=== PATIENT | female | born 1965 | race African-American/Black ===

== ENCOUNTER 2021-05-22 05:24 | Emergency (ER) | payer BC ==
[~2021-05-22] VITALS: Ht 177.8 cm; Wt 118.0 kg
--- NOTE | 2021-05-22 06:16 | EKG ---
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
[2021-05-22 06:24] LABS: BASO % 1 % (0-3); EOS # 0.1 x10^3/uL (0.0-0.7); EOS % 2 % (0-3); HEMATOCRIT 35.1 % (36.0-47.0); HEMOGLOBIN 11.5 g/dL (12.0-15.5); LYMPH # 2.1 x10^3/uL (1.0-4.8); LYMPH % 41 % (24-48); MEAN CORPUSCULAR HEMOGLOBIN 25 pg (25-35); MEAN CORPUSCULAR HGB CONC 33 g/dL (31-37); MEAN CORPUSCULAR VOLUME 75 fL (79-100); MONO # 0.4 x10^3/uL (0.0-1.1); MONO % 7 % (0-9); NEUT # 2.6 x10^3/uL (1.8-7.7); NEUT % 49 % (31-73); PLATELET COUNT 183 x10^3/uL (140-400); RED BLOOD COUNT 4.67 x10^6/uL (3.50-5.40); RED CELL DISTRIBUTION WIDTH 16.4 % (11.5-14.5); WHITE BLOOD COUNT 5.2 x10^3/uL (4.0-11.0)
[2021-05-22 06:36] LABS: CALCIUM 8.7 mg/dL (8.5-10.1); CREATININE 0.9 mg/dL (0.6-1.0); GFR 64.8; POTASSIUM 3.5 mmol/L (3.5-5.1)
[2021-05-22 06:42] LABS: ALBUMIN 3.7 g/dL (3.4-5.0); ALBUMIN/GLOBULIN RATIO 1.2 (1.0-1.7); TOTAL BILIRUBIN 0.4 mg/dL (0.2-1.0); TOTAL PROTEIN 6.9 g/dL (6.4-8.2)
[2021-05-22 06:57] LABS: BILIRUBIN,URINE NEGATIVE (NEG); CLARITY,URINE CLEAR; COLOR,URINE YELLOW; NITRITE,URINE NEGATIVE (NEG); PH,URINE 5.5 (<5.0-8.0); PROTEIN,URINE NEGATIVE (NEG-TRACE); UROBILINOGEN,URINE 0.2 mg/dL (0.2 mg/dL)
[2021-05-22 07:14] LABS: BACTERIA,URINE 0 /HPF (0-FEW); RBC,URINE 0 /HPF (0-2); WBC,URINE OCC /HPF (0-4)
--- NOTE | 2021-05-22 07:35 | RAD ---
EXAM: CT HEAD WITHOUT CONTRAST. HISTORY: Dizziness. TECHNIQUE: Computed tomography of the head was performed without intravenous contrast. One or more of the following individualized dose reduction techniques were utilized for this examination: 1. Automated exposure control. 2. Adjustment of the mA and/or kV according to patient size. 3. Use of iterative reconstruction technique. COMPARISON: None. FINDINGS: There is no intracranial hemorrhage. Whatley-white differentiation is preserved. The ventricle s are normal in size and position. The visualized paranasal sinuses appear clear. The orbits are unremarkable. The temporal bones are un remarkable. The calvarium reveals no suspicious lesions. IMPRESSION: 1. No acute intracranial findings. Electronically signed by: Tc Llamas MD (05/22/2021 7:33 AM) [id number]
[2021-05-22] MEDS ORDERED: CONTRAST GIVEN. MC PRN (09:00)
[2021-05-22] MEDS ORDERED: IOHEXOL 300 MG/ML 100ML VIAL. IV ONE (09:00)
--- NOTE | 2021-05-22 09:36 | RAD ---
PQRS Compliance Statement: One or more of the following individualized dose reduction techniques were utilized for this examinat ion: 1. Automated exposure control 2. Adjustment of the mA and/or kV according to patient size 3. Use of iterative reconstruction technique CTA HEAD AND NECK W/WO CONTRAST 05/22/2021 8:53 AM INDICATION: Dizziness, falling to the left side when walking COMPARISON: CT head 05/22/2021 TECHNIQUE: Multiple axial CT images of the head and neck were obtained after the intravenous administ ration of nonionic contrast. Coronal and sagittal reformats are provided. Maximum intensity projectio n images are provided. Stenosis calculations for CT, MR, and conventional angiography are based upon measurements of the dis jessica ICA diameter in accordance with the NASCET methodology. Stenosis calculations for carotid ultraso und studies are derived from validated velocity criteria which are known to correlate with the NASCET methodology. FINDINGS: Ventricles, sulci and basal cisterns are normal in appearance. Whatley-white matter differentiation is p reserved. There is no mass, mass effect or midline shift. Posterior fossa is normal in appearance. Se lla and suprasellar cistern appear normal. Orbits are normal in appearance . Scalp and calvaria appea r intact. Paranasal sinuses are well aerated. Mastoid air cells are well aerated. Visualized portions of lungs are clear. Left thyroid lobe is surgically absent. Neck soft tissues are normal in appearance. No pathologically enlarged cervical lymphadenopathy. Pharynx and larynx appear intact. Vascular findings: Venous contamination evaluation. There is a normal three-vessel aortic arch. Origins of the brachiocephalic vessels are widely patent. Right common carotid artery is normal in course and caliber. No significant atherosclerotic changes a re identified at the right carotid bifurcation. No significant stenosis of the right cervical interna l carotid artery. External carotid artery is widely patent. Left common carotid artery is normal in course and caliber. No significant atherosclerotic changes ar e identified at the left carotid bifurcation. No significant stenosis of the left cervical internal c arotid artery. External carotid artery is widely patent. Vertebral arteries are normal in course and caliber. Intracranial segments of internal carotid arteries are normal in course and caliber. There is mild ca lcified atheromatous plaque involving the cavernous segments without significant stenosis. Origins of the ophthalmic segments of the internal carotid artery appears widely patent. Middle cerebral arteri es are normal in course and caliber with patent sylvian branches. Anterior cerebral arteries are nor mal in course and caliber. Anterior communicating artery is visualized. Basilar artery is normal in course and caliber. Superior cerebellar arteries are widely patent. Poste rior cerebral arteries are normal in course and caliber. There is no aneurysm, vascular malformation or high-grade stenosis/large vessel occlusion involving c [place] of [place]. Superior sagittal sinus is patent. IMPRESSION: 1. There is no evidence for acute intracranial hemorrhage. 2. There is no evidence for hemodynamically significant carotid stenosis. 3. There is no aneurysm, vascular malformation or high-grade stenosis/large vessel occlusion involvin g the [place] of [place]. Electronically signed by: Naomy Rodriguez MD (05/22/2021 9:34 AM) [id number]
--- NOTE | 2021-05-22 10:16 | PHYS DOC ---
Past Medical History Past Surgical History: Cholecystectomy, Tonsillectomy, Tubal ligation Smoking Status: Never Smoker Alcohol Use: Occasionally General Adult EDM: Chief Complaint: DIZZY/LIGHT HEADED HPI: HPI: Patient is a 55 year old female who presented to ER for evaluation of dizziness since 6 PM yesterday. Patient says for the last few days she has been experiencing nasal congestion, facial pain. 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 Patient said whenever she tried to walk she she felt like she was leaning to the left side. Patient denies any headache, no chest pain, no abdominal pain, no nausea vomiting.. Patient continued to have the symptom throughout the night so this morning she came in. The dizziness was worsened with head movement, upright position. Patient denies any weakness or numbness anywhere. Patient denies any trouble speaking, no slurred speech, no memory problem. Patient says she had this problem in the past and is related to her sinus problem. Review of Systems: Review of Systems: Constitutional: Denies fever or chills. [] Eyes: Denies change in visual acuity. [] HENT: Positive for nasal congestion, no sore throat Respiratory: Denies cough or shortness of breath. [] Cardiovascular: Denies chest pain or edema. [] GI: Denies abdominal pain, nausea, vomiting, bloody stools or diarrhea. [] : Denies dysuria. [] Musculoskeletal: Denies back pain or joint pain. [] Integument: Denies rash. [] Neurologic: Denies headache, focal weakness or sensory changes. Positive for dizziness. Endocrine: Denies polyuria or polydipsia. [] Lymphatic: Denies swollen glands. [] Psychiatric: Denies depression or anxiety. [] Heart Score: C/O Chest Pain: N/A Risk Factors: Risk Factors: DM, Current or recent (<one month) smoker, HTN, HLP, family history of CAD, obesity. Risk Scores: Score 0 - 3: 2.5% MACE over next 6 weeks - Discharge Home Score 4 - 6: 20.3% MACE over next 6 weeks - Admit for Clinical Observation Score 7 - 10: 72.7% MACE over next 6 weeks - Early Invasive Strategies Current Medications: Current Medications Medications (Trade) Dose Ordered Sig/Wesley Start Time Stop Time Status Last Admin Dose Admin Info (CONTRAST GIVEN -- Rx MONITORING) 1 each PRN DAILY PRN 05/22/21 09:00 05/24/21 08:59 Iohexol (Omnipaque 300 Mg/ml) 75 ml 1X ONCE 05/22/21 09:00 05/22/21 09:01 DC 05/22/21 09:19 75 ML Allergies: Allergies: Allergies Coded Allergies Type Severity Reaction Last Updated Verified No Known Drug Allergies 05/22/21 No Physical Exam: PE: Constitutional: Well developed, well nourished, no acute distress, non-toxic appearance. [] HENT: Normocephalic, atraumatic, bilateral external ears normal, oropharynx moist, no oral exudates, nose normal. [] Eyes: PERRLA, EOMI, conjunctiva normal, no discharge. [] Neck: Normal range of motion, no tenderness, supple, no stridor. [] Cardiovascular:Heart rate regular rhythm, no murmur [] Lungs & Thorax: Bilateral breath sounds clear to auscultation [] Abdomen: Bowel sounds normal, soft, no tenderness, no masses, no pulsatile masses. [] Skin: Warm, dry, no erythema, no rash. [] Back: No tenderness, no CVA tenderness. [] Extremities: No tenderness, no cyanosis, no clubbing, ROM intact, no edema. [] Neurologic: Alert and oriented X 3, normal motor function, normal sensory fun ction, no focal deficits noted. [] Psychologic: Affect normal, judgement normal, mood normal. [] Current Patient Data: Labs: Laboratory Tests Test 05/22/21 06:12 05/22/21 06:50 White Blood Count 5.2 x10^3/uL (4.0-11.0) Red Blood Count 4.67 x10^6/uL (3.50-5.40) Hemoglobin 11.5 g/dL (12.0-15.5) L Hematocrit 35.1 % (36.0-47.0) L Mean Corpuscular Volume 75 fL (79-100) L Mean Corpuscular Hemoglobin 25 pg (25-35) Mean Corpuscular Hemoglobin Concent 33 g/dL (31-37) Red Cell Distribution Width 16.4 % (11.5-14.5) H Platelet Count 183 x10^3/uL (140-400) Neutrophils (%) (Auto) 49 % (31-73) Lymphocytes (%) (Auto) 41 % (24-48) Monocytes (%) (Auto) 7 % (0-9) Eosinophils (%) (Auto) 2 % (0-3) Basophils (%) (Auto) 1 % (0-3) Neutrophils # (Auto) 2.6 x10^3/uL (1.8-7.7) Lymphocytes # (Auto) 2.1 x10^3/uL (1.0-4.8) Monocytes # (Auto) 0.4 x10^3/uL (0.0-1.1) Eosinophils # (Auto) 0.1 x10^3/uL (0.0-0.7) Basophils # (Auto) 0.0 x10^3/uL (0.0-0.2) Sodium Level 138 mmol/L (136-145) Potassium Level 3.5 mmol/L (3.5-5.1) Chloride Level 102 mmol/L (98-107) Carbon Dioxide Level 29 mmol/L (21-32) Anion Gap 7 (6-14) Blood Urea Nitrogen 19 mg/dL (7-20) Creatinine 0.9 mg/dL (0.6-1.0) Estimated GFR (Cockcroft-Gault) 64.8 BUN/Creatinine Ratio 21 (6-20) H Glucose Level 106 mg/dL (70-99) H Calcium Level 8.7 mg/dL (8.5-10.1) Magnesium Level 1.8 mg/dL (1.8-2.4) Total Bilirubin 0.4 mg/dL (0.2-1.0) Aspartate Amino Transferase (AST) 15 U/L (15-37) Alanine Aminotransferase (ALT) 32 U/L (14-59) Alkaline Phosphatase 73 U/L (46-116) Troponin I High Sensitivity < 4 ng/L (4-50) L Total Protein 6.9 g/dL (6.4-8.2) Albumin 3.7 g/dL (3.4-5.0) Albumin/Globulin Ratio 1.2 (1.0-1.7) Urine Collection Type Unknown Urine Color Yellow Urine Clarity Clear Urine pH 5.5 (<5.0-8.0) Urine Specific Sterling 1.015 (1.000-1.030) Urine Protein Negative mg/dL (NEG-TRACE) Urine Glucose (UA) Negative mg/dL (NEG) Urine Ketones (Stick) Negative mg/dL (NEG) Urine Blood Small (NEG) Urine Nitrite Negative (NEG) Urine Bilirubin Negative (NEG) Urine Urobilinogen Dipstick 0.2 mg/dL (0.2 mg/dL) Urine Leukocyte Esterase Negative (NEG) Urine RBC 0 /HPF (0-2) Urine WBC Occ /HPF (0-4) Urine Squamous Epithelial Cells Many /LPF Urine Renal Epithelial Cells Occ /LPF Urine Bacteria 0 /HPF (0-FEW) Urine Mucus Marked /LPF Laboratory Tests 05/22/21 06:12 Laboratory Tests 05/22/21 06:12 Vital Signs: Vital Signs Date Time Temp Pulse Resp B/P (MAP) Pulse Ox O2 Delivery O2 Flow Rate FiO2 05/22/21 09:30 67 16 151/87 (108) 99 Room Air 05/22/21 05:46 98.1 98.1 EKG: EKG: EKG was done at 602, heart rate of 71 bpm, normal sinus rhythm, no ST segment elevation. Radiology/Procedures: Radiology/Procedures: [facility] [address] [place], [place] [id number] IMAGING REPORT Signed PATIENT: ZACARIAS RUSSO ACCOUNT: [id number] : 1965 LOCATION: ER AGE: 55 SEX: F EXAM STATUS: REG ER ORD. PHYSICIAN: DINA NUGENT DO REASON: DIZZINESS SINCE 6 PM YESTERDAY PROCEDURE: CT HEAD WO CONTRAST EXAM: CT HEAD WITHOUT CONTRAST. HISTORY: Dizziness. TECHNIQUE: Computed tomography of the head was performed without intravenous contrast. One or more of the following individualized dose reduction techniques were utilized for this examination: 1. Automated exposure control. 2. Adjustment of the mA and/or kV according to patient size. 3. Use of iterative reconstruction technique. COMPARISON: None. FINDINGS: There is no intracranial hemorrhage. Whatley-white differentiation is preserved. The ventricles are normal in size and position. The visualized paranasal sinuses appear clear. The orbits are unremarkable. The temporal bones are unremarkable. The calvarium reveals no suspicious lesions. IMPRESSION: 1. No acute intracranial findings. Electronically signed by: Tc Llamas MD (05/22/2021 7:33 AM) [id number] DICTATED and SIGNED BY: BRANDEN LLAMAS MD DATE: 05/22/21 [id number] [][facility] [address] [place] [address] IMAGING REPORT Signed PATIENT: ZACARIAS RUSSO ACCOUNT: [id number] : 1965 LOCATION: ER AGE: 55 SEX: F EXAM STATUS: REG ER ORD. PHYSICIAN: DINA NUGENT DO REASON: DIZZINESS, FALLING TO LEFT SIDE WHEN WALKING SINCE 6 PM YESTERDAY PROCEDURE: CT ANGIOGRAPHY HEAD AND NECK PQRS Compliance Statement: One or more of the following individualized dose reduction techniques were utilized for this examination: 1. Automated exposure control 2. Adjustment of the mA and/or kV according to patient size 3. Use of iterative reconstruction technique CTA HEAD AND NECK W/WO CONTRAST 05/22/2021 8:53 AM INDICATION: Dizziness, falling to the left side when walking COMPARISON: CT head 05/22/2021 TECHNIQUE: Multiple axial CT images of the head and neck were obtained after the intravenous administration of nonionic contrast. Coronal and sagittal reformats are provided. Maximum intensity projection images are provided. Stenosis calculations for CT, MR, and conventional angiography are based upon measurements of the distal ICA diameter in accordance with the NASCET methodology. Stenosis calculations for carotid ultrasound studies are derived from validated velocity criteria which are known to correlate with the NASCET methodology. FINDINGS: Ventricles, sulci and basal cisterns are normal in appearance. Whatley-white matter differentiation is preserved. There is no mass, mass effect or midline shift. Posterior fossa is normal in appearance. Sella and suprasellar cistern appear normal. Orbits are normal in appearance . Scalp and calvaria appear intact. Paranasal sinuses are well aerated. Mastoid air cells are well aerated. Visualized portions of lungs are clear. Left thyroid lobe is surgically absent. Neck soft tissues are normal in appearance. No pathologically enlarged cervical lymphadenopathy. Pharynx and larynx appear intact. Vascular findings: Venous contamination evaluation. There is a normal three-vessel aortic arch. Origins of the brachiocephalic vessels are widely patent. Right common carotid artery is normal in course and caliber. No significant atherosclerotic changes are identified at the right carotid bifurcation. No si gnificant stenosis of the right cervical internal carotid artery. External carotid artery is widely patent. Left common carotid artery is normal in course and caliber. No significant atherosclerotic changes are identified at the left carotid bifurcation. No significant stenosis of the left cervical internal carotid artery. External carotid artery is widely patent. Vertebral arteries are normal in course and caliber. Intracranial segments of internal carotid arteries are normal in course and c aliber. There is mild calcified atheromatous plaque involving the cavernous segments without significant stenosis. Origins of the ophthalmic segments of the internal carotid artery appears widely patent. Middle cerebral arteries are normal in course and caliber with patent sylvian branches. Anterior cerebral arteries are normal in course and caliber. Anterior communicating artery is visualized. Basilar artery is normal in course and caliber. Superior cerebellar arteries are widely patent. Posterior cerebral arteries are normal in course and caliber. There is no aneurysm, vascular malformation or high-grade stenosis/large vessel occlusion involving [place] of [place]. Superior sagittal sinus is patent. IMPRESSION: 1. There is no evidence for acute intracranial hemorrhage. 2. There is no evidence for hemodynamically significant carotid stenosis. 3. There is no aneurysm, vascular malformation or high-grade stenosis/large vessel occlusion involving the [place] of [place]. Electronically signed by: Charli Nina MD (05/22/2021 9:34 AM) [id number] DICTATED and SIGNED BY: CHARLI NINA MD DATE: 05/22/21 [id number] 0 Course & Med Decision Making: Course & Med Decision Making Pertinent Labs and Imaging studies reviewed. (See chart for details) Patient is a 57-year-old female who present to ER due to dizziness episode. Patient had no other focal neurological deficits, no speech problem, no memory problem, no headache, patient was able to get up and walk in the ER without any problem. CT scan her head, CTA head and neck did not show any acute problem. Patient says she feels much better now, denies any dizziness while she was walking. Patient will be discharged home, she will need to follow-up with her family physician for outpatient evaluation with MRI of her brain. Patient is amenable to plan of care. Dragon Disclaimer: Dragon Disclaimer: This electronic medical record was generated, in whole or in part, using a voice recognition dictation system. Departure Departure Impression: Primary Impression: Dizziness Disposition: HOME / SELF CARE / HOMELESS Condition: IMPROVED Referrals: TEMI MENDEZ MD (PCP) Please follow up with your family doctor on Wednesday for evaluation with MRI OF YOUR BRAIN. Patient Instructions: Dizziness Additional Instructions: Thank you for visiting our Emergency Department. We appreciate you trusting us with your care. If any additional problems come up don't hesitate to return to visit us. Please follow up with your primary care provider so they can plan additional care if needed and know about the problem that you had. If symptoms worsen come back to the Emergency Department. Any concerning symptoms that start such as chest pain, shortness of air, weakness or numbness on one side of the body, running high fevers or any other concerning symptoms return to the ER. IDNA NUGENT DO May 22, 2021 10:16
[2021-05-22 10:30] VITALS: BP 145/78
== END 2021-05-22 10:57 | disposition home or self-care (01) ==
LOC: ER 05:24
DX: R42 Dizziness and giddiness (principal); R09.81 Nasal congestion; R51.9 Headache, unspecified
CPT/HCPCS: 36415; 70450; 70496; 70498; 80053; 81001; 83735; 84484; 85025; 93005; 99285; Q9967